=== PATIENT | female | born 1985 | race Caucasian/White ===

== ENCOUNTER → 2017-08-07 | Outpatient (CLI) | payer OTHER ==
--- NOTE | 2017-08-07 22:43 | MR ---
EXAMINATION TYPE: MR lumbar spine wo/w con DATE OF EXAM: 08/07/2017 COMPARISON: Lumbar spine x-ray November 19, 2013 HISTORY: Low Back Pain per order, Previous Surgery 2013 with recurrent back pain for 3 to 4 months pe r patient. TECHNIQUE: Multiplanar, multisequence images of the lumbar spine is performed without and with IV contrast, util izing 9 mL intravenous Gadavist FINDINGS: Sagittal images of the lumbar spine show vertebral body heights and alignment to remain sat isfactory. There is disc desiccation L4-L5 level otherwise the intervertebral discs demonstrate aixa l heights and hydration. Posterior disc herniations are seen L4-L5 and L5-S1 levels on sagittal imag es. The conus medullaris is normal in position and signal ending at mid L1 level. There is heterogene ous diminished T1 and increased T2 signal consistent with Modic type I degenerative change at L5-S1 e ndplate. Some nonspecific endplate enhancement is seen with minimal disc enhancement posteriorly and centrally sagittal image 9 noted. A discitis/osteomyelitis though unlikely is not entirely excluded. No suspicious soft tissue phlegmon or cortical destruction is present. Finding is most likely postsur gical in nature. No significant spurring is noted. There is partial visualization of unremarkable vernon rine fundus on sagittal image 2. Axial images show no the T12-L1, L1-L2, L2-L3, and L3-L4 levels all to appear within normal limits. Axial images at L4-L5 level shows mild to moderate broad disc bulge with central disc protrusion mild ly effacing anterior thecal sac. Bilateral neural foramina remain patent. Axial images at L5-S1 level shows right-sided laminectomy defect with some enhancing scar tissue exte nding to right epidural and anterior epidural space. There is small central disc protrusion but spina l canal is preserved. Bilateral neural foramina remain patent. IMPRESSION: Right laminectomy defect L5-S1 level with scar tissue noted. Some degenerative changes re main present L4-L5 and L5-S1 level as detailed above.
== END | disposition home or self-care (01) ==
LOC: RADMRIMAIN 18:06
PROVIDERS: ATTEND Internal Medicine
DX: M48.07 Spinal stenosis, lumbosacral region (principal); M51.27 Other intervertebral disc displacement, lumbosacral region; M47.817 Spondylosis without myelopathy or radiculopathy, lumbosacral region; Z98.890 Other specified postprocedural states
CPT/HCPCS: 72158; A9581

== ENCOUNTER 2017-11-22 11:30 | Emergency (ER) | payer OTHER ==
[2017-11-22 11:43] VITALS: RESP 18
[2017-11-22] MEDS ORDERED: RX INFO: IV CONTRAST WAS GIVEN 1 EACH MISC MISCELLANE PRN (11:53)
--- NOTE | 2017-11-22 11:57 | ED ---
General Adult HPI - General Chief complaint: ENT Stated complaint: facial swelling Time Seen by Provider: 11/22/17 11:55 Source: patient, RN notes reviewed Mode of arrival: ambulatory Limitations: no limitations - History of Present Illness Initial comments: This is a 32-year-old female who presents to the emergency department complaining that she has swelling in the left side of her face. Patient states last night she felt a little tightness under her left eye and this morning she woke up with swelling to the lower eyelid all the way down to her jawline. Patient denies any dental pain or. Patient denies any drainage from the eye. Patient denies any visual disturbance or double vision. Patient denies any headache. Patient denies any fever chills. Patient states prior to the tightness last night she had no symptoms whatsoever she did not believe she was congested. - Related Data Home Medications Medication Instructions Recorded Confirmed Naproxen [Naprosyn] 500 mg PO DAILY PRN 04/08/15 11/22/17 Gabapentin [Neurontin] 300 mg PO BID 11/22/17 11/22/17 HYDROcodone/APAP 7.5-325MG [[place] 1 tab PO TID PRN 11/22/17 11/22/17 7.5] Ranitidine HCl 150 mg PO HS 11/22/17 11/22/17 Vitamin B Complex 1 cap PO DAILY 11/22/17 11/22/17 Previous Rx's Medication Instructions Recorded Amoxicillin 500 mg PO Q8H #30 capsule 11/22/17 Allergies Allergy/AdvReac Type Severity Reaction Status Date / Time No Known Allergies Allergy Verified 11/22/17 12:27 Review of Systems ROS Statement: Those systems with pertinent positive or pertinent negative responses have been documented in the HPI. ROS Other: All systems not noted in ROS Statement are negative. Past Medical History Past Medical History: GERD/Reflux, Musculoskeletal Disorder, Osteoarthritis (OA) Additional Past Medical History / Comment(s): hx migraines History of Any Multi-Drug Resistant Organisms: None Reported Past Surgical History: Back Surgery, Section Past Anesthesia/Blood Transfusion Reactions: No Reported Reaction Past Psychological History: Depression Smoking Status: Current every day smoker Past Alcohol Use History: Rare Past Drug Use History: Marijuana General Exam - General Exam Comments Initial Comments: GENERAL: Patient is well-developed and well-nourished. Patient is nontoxic and well- hydrated and is in mild distress. ENT: Neck is soft and supple. No significant lymphadenopathy is noted. Left side of the patient's face is swollen from the lower eyelid down to the jawline. Patient has no erythema in that area and it is not warm. Patient is tender over the maxillary sinus. Oropharynx is clear. Moist mucous membranes. Neck has full range of motion without eliciting any pain. EYES: The sclera were anicteric and conjunctiva were pink and moist. Extraocular movements were intact and pupils were equal round and reactive to light. Eyelids were unremarkable. PULMONARY: Unlabored respirations. Good breath sounds bilaterally. No audible rales rhonchi or wheezing was noted. CARDIOVASCULAR: There is a regular rate and rhythm without any murmurs gallops or rubs. ABDOMEN: Soft and nontender with normal bowel sounds. SKIN: Skin is clear with no lesions or rashes and otherwise unremarkable. NEUROLOGIC: Patient is alert and oriented x3. Cranial nerves II through XII are grossly intact. Motor and sensory are also intact. Normal speech, volume and content. Symmetrical smile. MUSCULOSKELETAL: Normal extremities with adequate strength and full range of motion. No lower extremity swelling or edema. No calf tenderness. LYMPHATICS: No significant lymphadenopathy is noted PSYCHIATRIC: Normal psychiatric evaluation. Limitations: no limitations Course Vital Signs 11/22/17 11:41 Temperature 97.4 F L Pulse Rate 92 Respiratory 18 Rate Blood Pressure 140/93 O2 Sat by Pulse 99 Oximetry Medical Decision Making - Medical Decision Making CT shows facial cellulitis with a likely dental origin - Lab Data Result diagrams: 11/22/17 12:00 11/22/17 12:00 Lab Results 11/22/17 11/22/17 Range/Units 12:00 12:00 WBC 9.3 (3.8-10.6) k/uL RBC 5.00 (3.80-5.40) m/uL Hgb 14.7 (11.4-16.0) gm/dL Hct 45.3 (34.0-46.0) % MCV 90.6 (80.0-100.0) fL MCH 29.4 (25.0-35.0) pg MCHC 32.5 (31.0-37.0) g/dL RDW 13.5 (11.5-15.5) % Plt Count 223 (150-450) k/uL Neutrophils % 74 % Lymphocytes % 19 % Monocytes % 6 % Eosinophils % 2 % Basophils % 0 % Neutrophils # 6.8 (1.3-7.7) k/uL Lymphocytes # 1.7 (1.0-4.8) k/uL Monocytes # 0.5 (0-1.0) k/uL Eosinophils # 0.1 (0-0.7) k/uL Basophils # 0.0 (0-0.2) k/uL Sodium 143 (137-145) mmol/L Potassium 4.6 (3.5-5.1) mmol/L Chloride 105 (98-107) mmol/L Carbon Dioxide 26 (22-30) mmol/L Anion Gap 12 mmol/L BUN 7 (7-17) mg/dL Creatinine 0.56 (0.52-1.04) mg/dL Est GFR (CKD-EPI)AfAm >90 (>60 ml/min/1.73 sqM) Est GFR (CKD-EPI)NonAf >90 (>60 ml/min/1.73 sqM) Glucose 78 (74-99) mg/dL Calcium 9.4 (8.4-10.2) mg/dL Total Bilirubin 0.6 (0.2-1.3) mg/dL AST 18 (14-36) U/L ALT 22 (9-52) U/L Alkaline Phosphatase 54 (38-126) U/L Total Protein 6.9 (6.3-8.2) g/dL Albumin 4.2 (3.5-5.0) g/dL Disposition Clinical Impression: Facial cellulitis, Dental infection Disposition: HOME SELF-CARE Condition: Good Instructions: Toothache (ED) Additional Instructions: Follow-up with the dentist Prescriptions: Amoxicillin 500 mg PO Q8H #30 capsule Is patient prescribed a controlled substance at d/c from ED?: No Referrals: Kevin Huffman MD [Primary Care Provider] - 1-2 days Time of Disposition: 12:58
[2017-11-22 12:35] LABS: Basophils % (A) 0 %; Eosinophils # (A) 0.1 k/uL (0-0.7); Eosinophils % (A) 2 %; HCT 45.3 % (34.0-46.0); HGB 14.7 gm/dL (11.4-16.0); Lymphocytes # (A) 1.7 k/uL (1.0-4.8); Lymphocytes % (A) 19 %; MCH 29.4 pg (25.0-35.0); MCHC 32.5 g/dL (31.0-37.0); MCV 90.6 fL (80.0-100.0); Mean Platelet Volume 7.5; Monocytes # (A) 0.5 k/uL (0-1.0); Monocytes % (A) 6 %; Neutrophils # (A) 6.8 k/uL (1.3-7.7); Neutrophils % (A) 74 %; Platelet Count 223 k/uL (150-450); RDW 13.5 % (11.5-15.5); WBC 9.3 k/uL (3.8-10.6)
[2017-11-22 12:42] LABS: ALT 22 U/L (9-52); AST 18 U/L (14-36); Albumin 4.2 g/dL (3.5-5.0); Alkaline Phosphatase 54 U/L (38-126); Anion Gap 12 mmol/L; Blood Urea Nitrogen 7 mg/dL (7-17); Calcium 9.4 mg/dL (8.4-10.2); Carbon Dioxide 26 mmol/L (22-30); Chloride 105 mmol/L (98-107); Glucose 78 mg/dL (74-99); Potassium 4.6 mmol/L (3.5-5.1); Sodium 143 mmol/L (137-145); Total Bilirubin 0.6 mg/dL (0.2-1.3); Total Protein 6.9 g/dL (6.3-8.2)
--- NOTE | 2017-11-22 12:52 | CT ---
EXAMINATION TYPE: CT facial bones w con DATE OF EXAM: 11/22/2017 COMPARISON: NONE HISTORY: Lt eye swelling since this morning, swollen shut CT DLP: 603 mGycm Automated exposure control for dose reduction was used. CONTRAST: CT scan of the facial bones is performed with IV Contrast, patient injected with 100 mL of Isovue 300 . TECHNIQUE: CT scan of the sinuses is performed without contrast, axial images are obtained, coronal r eformatted images are also reviewed. FINDINGS: There is edema of the lower left eyelid extending into the left infraorbital and left facial region. There is also inflammatory change adjacent to the left maxilla where there is an upper left molar dem onstrating cortical disruption seen best on axial image 5 of 87 bone window setting. No definable abs cess is appreciated at this time however etiology may reflect dental source of infection. Globes are symmetric. No evidence for retro-orbital cellulitis. Optic nerves and globes are intact. There is mild mucosal thickening of the left maxillary sinus. No air-fluid levels are seen. Remaining paranasal sinuses are well-aerated. Visualized portion of mastoid air cells show no abnormal opacification. IMPRESSION: 1. Left facial cellulitis extending to the level of the lower left eyelid. As noted there is an upper left-sided molar with cortical disruption and moderate adjacent inflammatory change. Dental source o f infection is likely. No evidence for visible abscess at this time.
[2017-11-22] MEDS ORDERED: AMOXICILLIN 875 MG TAB PO STA (12:57)
[2017-11-22] MEDS ORDERED: AMOXICILLIN 500MG STARTER PACK 3 CAP BTL PO STA (12:57)
[2017-11-22 13:26] VITALS: BP 127/87; PULSE 80; TEMP 98.1
== END 2017-11-22 13:24 | disposition home or self-care (01) ==
LOC: EC 11:30
DX: L03.211 Cellulitis of face (principal); K04.7 Periapical abscess without sinus; K21.9 Gastro-esophageal reflux disease without esophagitis; F17.200 Nicotine dependence, unspecified, uncomplicated; Z79.899 Other long term (current) drug therapy
CPT/HCPCS: 36415; 80053; 85025; 87040; 70487; 99284; Q9967

== ENCOUNTER → 2018-07-03 | Outpatient (CLI) | payer OTHER ==
--- NOTE | 2018-07-04 09:15 | XR ---
EXAMINATION TYPE: XR chest 2V DATE OF EXAM: 07/03/2018 CLINICAL HISTORY: Cough TECHNIQUE: Frontal and lateral views of the chest are obtained. COMPARISON: None FINDINGS: There is no focal air space opacity, pleural effusion, or pneumothorax seen. The cardiac silhouette size is within normal limits. The osseous structures are intact. IMPRESSION: No acute cardiopulmonary process.
== END | disposition home or self-care (01) ==
LOC: RADXRMAIN 16:33
PROVIDERS: ATTEND Internal Medicine
DX: R05 Cough (principal)
CPT/HCPCS: 71046

== ENCOUNTER 2018-10-26 20:52 | Emergency (ER) | payer OTHER ==
[~2018-10-26 20:52] MED LIST: MORPHINE SULFATE 2 MG/ML SYRINGE IM STA
[2018-10-26 21:17] VITALS: BP 139/74; PULSE 98; RESP 16; TEMP 98
[2018-10-26] MEDS ORDERED: TOPICAL SKIN ADHESIVE 1 EACH AMP TOPICAL ONE (21:53)
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
--- NOTE | 2018-10-26 22:21 | XR ---
EXAMINATION TYPE: XR hand complete LT DATE OF EXAM: 10/26/2018 COMPARISON: NONE HISTORY: Thumb laceration TECHNIQUE: 3 views FINDINGS: I see no fracture nor dislocation. Joint spaces are normal. There are no pathologic calcifi cations. IMPRESSION: Negative left thumb exam.
== END 2018-10-26 22:29 | disposition home or self-care (01) ==
LOC: EC 20:52
DX: S61.012A Laceration without foreign body of left thumb without damage to nail, initial encounter (principal); K21.9 Gastro-esophageal reflux disease without esophagitis; F17.200 Nicotine dependence, unspecified, uncomplicated; Z79.899 Other long term (current) drug therapy; Z86.69 Personal history of other diseases of the nervous system and sense organs; W22.8XXA Striking against or struck by other objects, initial encounter; Y93.89 Activity, other specified
CPT/HCPCS: 12001; 99283

== ENCOUNTER 2018-11-02 06:30 | Emergency (ER) | payer OTHER ==
[2018-11-02] MEDS ORDERED: KETOROLAC 30 MG/ML 1 ML VIAL IM STA (06:39)
--- NOTE | 2018-11-02 06:51 | ED ---
General Adult HPI - General Source: patient, EMS Mode of arrival: EMS Limitations: no limitations <Brynn Epps - Last Filed: 11/02/18 07:09> <Rolando Hung - Last Filed: 11/02/18 08:49> - General Chief complaint: Extremity Injury, Lower Stated complaint: Hip Pain Time Seen by Provider: 11/02/18 06:39 - History of Present Illness Initial comments: Tanvi is a 33-year-old female with a history of chronic low back pain who presents to the emergency department today for evaluation of left hip pain. Patient reports her left hip has been bothering her for approximately 2 days, she reports feeling like there is bones grinding on each other in her hip. Patient denies any injury or fall. Patient reports that the pain is progressively worsened over 2 days duration and now is unbearable. She reports that this morning she got out of bed and had some which pain in her hip she had to lower herself to the ground where she laid for nearly an hour before contacting EMS because she can get up to take herself to the hospital. Patient reports she's been taking her Lyrica and [place] which she has for her back with minimal improvement in the discomfort in her hip. (Brynn Epps) - Related Data Home Medications Medication Instructions Recorded Confirmed Naproxen [Naprosyn] 500 mg PO BID PRN 04/08/15 11/02/18 Gabapentin [Neurontin] 300 mg PO BID 11/22/17 11/02/18 HYDROcodone/APAP 7.5-325MG [[place] 1 tab PO TID PRN 11/22/17 11/02/18 7.5] Ranitidine HCl 150 mg PO HS 11/22/17 11/02/18 Previous Rx's Medication Instructions Recorded Ketorolac [Toradol] 10 mg PO Q6HR #15 tab 11/02/18 Allergies Allergy/AdvReac Type Severity Reaction Status Date / Time No Known Allergies Allergy Verified 10/26/18 21:16 Review of Systems ROS Other: All systems not noted in ROS Statement are negative. <Brynn Epps - Last Filed: 11/02/18 07:09> ROS Other: All systems not noted in ROS Statement are negative. <Rolando Hung - Last Filed: 11/02/18 08:49> ROS Statement: Those systems with pertinent positive or pertinent negative responses have been documented in the HPI. Past Medical History Past Medical History: GERD/Reflux, Musculoskeletal Disorder, Osteoarthritis (OA) Additional Past Medical History / Comment(s): hx migraines History of Any Multi-Drug Resistant Organisms: None Reported Past Surgical History: Back Surgery, Section Additional Past Surgical History / Comment(s): right eye surg. Past Anesthesia/Blood Transfusion Reactions: No Reported Reaction Past Psychological History: Depression Smoking Status: Current every day smoker Past Alcohol Use History: Rare Past Drug Use History: Marijuana <Brynn Epps - Last Filed: 11/02/18 07:09> General Exam Limitations: no limitations <Brynn Epps - Last Filed: 11/02/18 07:09> - General Exam Comments Initial Comments: Physical Exam GENERAL: Appears uncomfortable, crying out in pain HENT: Normocephalic, Atraumatic. EYES: PERRL, EOMI PULMONARY: Unlabored respirations. No audible rales rhonchi or wheezing was noted. CARDIOVASCULAR: There is a regular rate and rhythm without any murmurs gallops or rubs. ABDOMEN: Soft and nontender with normal bowel sounds. SKIN: Skin is clear with no lesions or rashes and otherwise unremarkable. No overlying erythema or injury to the head no bruising : Deferred NEUROLOGIC: Patient is alert and oriented x3. Moving all extremities spontaneously MUSCULOSKELETAL: Normal extremities with adequate strength and full range of motion. No lower extremity swelling or edema. No calf tenderness. Patient has full range of motion of the hip is able to flex and straighten the hip with no apparent change in pain, no worsening of pain with palpation PSYCHIATRIC: Normal psychiatric evaluation. Limitations: no limitations (Brynn Epps) Course Vital Signs 11/02/18 06:32 Temperature 97.8 F Pulse Rate 73 Respiratory 17 Rate Blood Pressure 126/80 O2 Sat by Pulse 100 Oximetry Medical Decision Making <Brynn Epps - Last Filed: 11/02/18 07:09> - Lab Data Result diagrams: 11/02/18 07:10 11/02/18 07:10 <Rolando Hung - Last Filed: 11/02/18 08:49> - Medical Decision Making The patient was seen and evaluated history was obtained from EMS and the patient excited patient with a history of chronic back pain and known arthritis presenting with worsening pain in her left hip reports feeling like there is bones rubbing on bones she denies any traumas or injuries X-rays were ordered, patient states that her has been sterilized she has no concern that she could be she would like to proceed with an x-ray without a urine test Labs including CBC CMP and CRP were ordered Patient care was signed out to Dr. Hung at shift change. (Brynn Epps) X-ray of the hip shows no acute abnormality lab work is all normal. I walked in the room the patient was sleeping when I woke her up she was able to move the hip with full range of motion though she said it hurt she had no problem bending at all it up to her chest and externally rotating it fully. (Rolando Hung) - Lab Data Lab Results 11/02/18 11/02/18 Range/Units 07:10 07:10 WBC 8.4 (3.8-10.6) k/uL RBC 4.85 (3.80-5.40) m/uL Hgb 14.3 (11.4-16.0) gm/dL Hct 44.0 (34.0-46.0) % MCV 90.7 (80.0-100.0) fL MCH 29.4 (25.0-35.0) pg MCHC 32.4 (31.0-37.0) g/dL RDW 13.6 (11.5-15.5) % Plt Count 244 (150-450) k/uL Neutrophils % 72 % Lymphocytes % 20 % Monocytes % 5 % Eosinophils % 2 % Basophils % 0 % Neutrophils # 6.0 (1.3-7.7) k/uL Lymphocytes # 1.7 (1.0-4.8) k/uL Monocytes # 0.4 (0-1.0) k/uL Eosinophils # 0.2 (0-0.7) k/uL Basophils # 0.0 (0-0.2) k/uL Sodium 140 (137-145) mmol/L Potassium 3.8 (3.5-5.1) mmol/L Chloride 107 (98-107) mmol/L Carbon Dioxide 25 (22-30) mmol/L Anion Gap 8 mmol/L BUN 8 (7-17) mg/dL Creatinine 0.60 (0.52-1.04) mg/dL Est GFR (CKD-EPI)AfAm >90 (>60 ml/min/1.73 sqM) Est GFR (CKD-EPI)NonAf >90 (>60 ml/min/1.73 sqM) Glucose 97 (74-99) mg/dL Calcium 9.5 (8.4-10.2) mg/dL Total Bilirubin 0.9 (0.2-1.3) mg/dL AST 21 (14-36) U/L ALT 31 (9-52) U/L Alkaline Phosphatase 50 (38-126) U/L C-Reactive Protein 7.3 (<10.0) mg/L Total Protein 7.0 (6.3-8.2) g/dL Albumin 4.2 (3.5-5.0) g/dL Disposition Is patient prescribed a controlled substance at d/c from ED?: No <Brynn Epps - Last Filed: 11/02/18 07:09> Is patient prescribed a controlled substance at d/c from ED?: No Time of Disposition: 08:48 <Rolando Hung - Last Filed: 11/02/18 08:49> Clinical Impression: Left hip pain Disposition: HOME SELF-CARE Instructions (If sedation given, give patient instructions): Osteoarthritis (ED) Prescriptions: Ketorolac [Toradol] 10 mg PO Q6HR #15 tab Referrals: Kevin Huffman MD [Primary Care Provider] - 1-2 days
--- NOTE | 2018-11-02 07:01 | XR ---
EXAMINATION TYPE: XR Hip Limited LT , 2 VIEWS DATE OF EXAM ORDERED: 11/02/2018 HISTORY: Pain. COMPARISON: None. FINDINGS: There is degenerative change in the left hip. There are also degenerative changes in the l eft SI joint. No fracture, dislocation or other acute osseous lesion is seen. IMPRESSION: 1. NO ACUTE OSSEOUS LESION. 2. DEGENERATIVE CHANGE.
[2018-11-02 07:47] LABS: Basophils % (A) 0 %; Eosinophils # (A) 0.2 k/uL (0-0.7); Eosinophils % (A) 2 %; HGB 14.3 gm/dL (11.4-16.0); Lymphocytes # (A) 1.7 k/uL (1.0-4.8); Lymphocytes % (A) 20 %; MCH 29.4 pg (25.0-35.0); MCHC 32.4 g/dL (31.0-37.0); MCV 90.7 fL (80.0-100.0); Mean Platelet Volume 7.6; Monocytes # (A) 0.4 k/uL (0-1.0); Monocytes % (A) 5 %; Neutrophils % (A) 72 %; Platelet Count 244 k/uL (150-450); RBC 4.85 m/uL (3.80-5.40); RDW 13.6 % (11.5-15.5); WBC 8.4 k/uL (3.8-10.6)
[2018-11-02 07:56] LABS: ALT 31 U/L (9-52); AST 21 U/L (14-36); Albumin 4.2 g/dL (3.5-5.0); Alkaline Phosphatase 50 U/L (38-126); Anion Gap 8 mmol/L; Blood Urea Nitrogen 8 mg/dL (7-17); Calcium 9.5 mg/dL (8.4-10.2); Carbon Dioxide 25 mmol/L (22-30); Chloride 107 mmol/L (98-107); Glucose 97 mg/dL (74-99); Potassium 3.8 mmol/L (3.5-5.1); Sodium 140 mmol/L (137-145); Total Bilirubin 0.9 mg/dL (0.2-1.3)
[2018-11-02 08:22] LABS: C Reactive Protein 7.3 mg/L (<10.0)
[2018-11-02] MEDS ORDERED: HYDROmorphone 1 MG/ML 1 ML SYRINGE IM STA (08:47)
[2018-11-02 09:11] VITALS: BP 112/79; PULSE 81; RESP 18; TEMP 97.5
== END 2018-11-02 09:30 | disposition home or self-care (01) ==
LOC: EC 06:30
DX: M25.552 Pain in left hip (principal); M19.90 Unspecified osteoarthritis, unspecified site; K21.9 Gastro-esophageal reflux disease without esophagitis; G89.29 Other chronic pain; F17.200 Nicotine dependence, unspecified, uncomplicated; Z79.899 Other long term (current) drug therapy
CPT/HCPCS: 36415; 80053; 85025; 86140; 73501; 99284; 96372 ×2; J1885; J1170

== ENCOUNTER 2019-01-23 13:14 | Emergency (ER) | payer OTHER ==
[2019-01-23] MEDS ORDERED: KETOROLAC 60 MG/2 ML VIAL IM STA (13:53)
[2019-01-23] MEDS ORDERED: MORPHINE SULFATE 4 MG/ML SYRINGE IM STA (13:53)
[2019-01-23] MEDS ORDERED: DIAZEPAM 5 MG/ML 2 ML INJ IM ONE (13:53)
--- NOTE | 2019-01-23 14:55 | ED ---
Back Pain HPI - General Chief Complaint: Back Pain/Injury Stated Complaint: hip & leg pain Time Seen by Provider: 01/23/19 13:30 Source: patient, RN notes reviewed, old records reviewed Limitations: no limitations - History of Present Illness Initial Comments: Patient is a 33-year-old female who presents emergency department today for evaluation for left hip pain radiates down her left leg. She's been having the symptoms for the past few weeks. She denies any recent fall or trauma. Symptoms started after she was doing a split at work. Patient states that she's had no saddle anesthesia. She denies any abdominal pain. He is worse. She states she's been using her at home pain medication including Olin gabapentin and naproxen without significant relief. - Related Data Home Medications Medication Instructions Recorded Confirmed Naproxen [Naprosyn] 500 mg PO BID PRN 04/08/15 11/02/18 Gabapentin [Neurontin] 300 mg PO BID 11/22/17 11/02/18 HYDROcodone/APAP 7.5-325MG [Olin 1 tab PO TID PRN 11/22/17 11/02/18 7.5] Ranitidine HCl 150 mg PO HS 11/22/17 11/02/18 Previous Rx's Medication Instructions Recorded Ketorolac [Toradol] 10 mg PO Q6HR #15 tab 11/02/18 Dexamethasone 0.75 mg PO DAILY #12 tab 01/23/19 Diazepam [Valium] 5 mg PO Q8H PRN 1 Days #3 tab 01/23/19 Allergies Allergy/AdvReac Type Severity Reaction Status Date / Time No Known Allergies Allergy Verified 01/23/19 13:25 Review of Systems ROS Statement: Those systems with pertinent positive or pertinent negative responses have been documented in the HPI. ROS Other: All systems not noted in ROS Statement are negative. Past Medical History Past Medical History: GERD/Reflux, Musculoskeletal Disorder, Osteoarthritis (OA) Additional Past Medical History / Comment(s): hx migraines History of Any Multi-Drug Resistant Organisms: None Reported Past Surgical History: Back Surgery, Section Additional Past Surgical History / Comment(s): right eye surg. Past Anesthesia/Blood Transfusion Reactions: No Reported Reaction Past Psychological History: Depression Smoking Status: Current every day smoker Past Alcohol Use History: Rare Past Drug Use History: Marijuana General Exam - General Exam Comments Initial Comments: Patient is a 33-year-old female. Patient appears quite anxious, writhing around in bed. Limitations: no limitations General appearance: alert, in no apparent distress Head exam: Present: atraumatic, normocephalic, normal inspection Eye exam: Present: normal appearance, PERRL, EOMI. Absent: scleral icterus, conjunctival injection, periorbital swelling ENT exam: Present: normal exam, mucous membranes moist Neck exam: Present: normal inspection. Absent: tenderness, meningismus, lymphadenopathy Respiratory exam: Present: normal lung sounds bilaterally. Absent: respiratory distress, wheezes, rales, rhonchi, stridor Cardiovascular Exam: Present: regular rate, normal rhythm, normal heart sounds. Absent: systolic murmur, diastolic murmur, rubs, gallop, clicks GI/Abdominal exam: Present: soft, normal bowel sounds. Absent: distended, tenderness, guarding, rebound, rigid Extremities exam: Present: normal inspection, full ROM, normal capillary refill. Absent: tenderness, pedal edema, joint swelling, calf tenderness Back exam: Present: normal inspection, other (Vision is tenderness over the left sciatic notch.) Neurological exam: Present: alert, oriented X3, CN II-XII intact Psychiatric exam: Present: normal affect, normal mood Skin exam: Present: warm Course Vital Signs 01/23/19 01/23/19 13:22 16:14 Temperature 97.9 F 99.1 F Pulse Rate 100 56 L Respiratory 22 18 Rate Blood Pressure 118/65 131/84 O2 Sat by Pulse 99 98 Oximetry Medical Decision Making - Medical Decision Making Patient is a 33 year old female with 3 weeks of intermittent left leg and back pain after fall, she sees Dr. Diehl for this radiculopathy syndrome as well as PCP. She denies saddle anesthesia. Patient appeared in significant discomfort on initial evaluation. Given IM pain medications. Patient has no other symptoms. PAtient UA is normal. Patient is scheduled for MRI for knee and back today at 4 oclock. After Im injection patient pain is managed, and able to complete MRI. Discussed starting steroids, continuing medication at home as previously perscribed. Given Short course of valium PO for muscle spasm as flexeril hasnt been working. - Lab Data Lab Results 01/23/19 Range/Units 15:20 Urine Color Yellow Urine Appearance Clear (Clear) Urine pH 6.0 (5.0-8.0) Ur Specific [place] 1.013 (1.001-1.035) Urine Protein Negative (Negative) Urine Glucose (UA) Negative (Negative) Urine Ketones Trace H (Negative) Urine Blood Negative (Negative) Urine Nitrite Negative (Negative) Urine Bilirubin Negative (Negative) Urine Urobilinogen <2.0 (<2.0) mg/dL Ur Leukocyte Esterase Negative (Negative) Urine Opiates Screen Detected H (NotDetected) Ur Oxycodone Screen Not Detected (NotDetected) Urine Methadone Screen Not Detected (NotDetected) Ur Propoxyphene Screen Not Detected (NotDetected) Ur Barbiturates Screen Not Detected (NotDetected) U Tricyclic Antidepress Not Detected (NotDetected) Ur Phencyclidine Scrn Not Detected (NotDetected) Ur Amphetamines Screen Not Detected (NotDetected) U Methamphetamines Scrn Not Detected (NotDetected) U Benzodiazepines Scrn Not Detected (NotDetected) Urine Cocaine Screen Not Detected (NotDetected) U Marijuana (THC) Screen Detected H (NotDetected) Disposition Clinical Impression: Lumbar radiculopathy, chronic, Sciatica Disposition: HOME SELF-CARE Condition: Good Instructions (If sedation given, give patient instructions): Acute Low Back Pain (ED) Additional Instructions: Patient is to follow-up with primary care doctor and pain management specialty. Go directly to MRI. Return to the emergency department if any alarming signs or symptoms occur. Prescriptions: Dexamethasone 0.75 mg PO DAILY #12 tab Diazepam [Valium] 5 mg PO Q8H PRN 1 Days #3 tab PRN Reason: Spasms Is patient prescribed a controlled substance at d/c from ED?: No Referrals: Kevin Huffman MD [Primary Care Provider] - 1-2 days
[2019-01-23 15:37] LABS: Appearance,Urine Clear (Clear); Bilirubin,Urine Negative (Negative); Blood,Urine Negative (Negative); Color,Urine Yellow; Glucose,Urine (UA) Negative (Negative); Ketones,Urine Trace (Negative); Leukocyte Esterase,Urine Negative (Negative); Nitrite,Urine Negative (Negative); Protein,Urine Negative (Negative); Specific Gravity,Urine 1.013 (1.001-1.035); Urobilinogen,Urine <2.0 mg/dL (<2.0)
[2019-01-23] MEDS ORDERED: HYDROmorphone 1 MG/ML 1 ML SYRINGE IM STA (15:55)
[2019-01-23 15:57] LABS: Amphetamine Screen,Urine Not Detected (NotDetected); Barbiturate Screen,Urine Not Detected (NotDetected); Benzodiazepines Screen,Urine Not Detected (NotDetected); Cocaine Screen,Urine Not Detected (NotDetected); Methadone Screen, Urine Not Detected (NotDetected); Opiate Screen,Urine Detected (NotDetected); Oxycodone Screen, Urine Not Detected (NotDetected); Phencyclidine Screen,Urine Not Detected (NotDetected); Tricyclic Antidepressant,Urine Not Detected (NotDetected); Urn Cannabinoid Scrn Detected (NotDetected)
[2019-01-23 16:15] VITALS: BP 131/84; PULSE 56; RESP 18; TEMP 99.1
== END 2019-01-23 16:14 | disposition home or self-care (01) ==
LOC: EC 13:14
DX: M54.16 Radiculopathy, lumbar region (principal); M54.32 Sciatica, left side; M19.90 Unspecified osteoarthritis, unspecified site; K21.9 Gastro-esophageal reflux disease without esophagitis; F17.200 Nicotine dependence, unspecified, uncomplicated; Z79.899 Other long term (current) drug therapy
CPT/HCPCS: 81003; 80306; 99284; 96372 ×4; J2270; J3360; J1885; J1170

== ENCOUNTER → 2019-01-23 | Outpatient (CLI) | payer OTHER ==
--- NOTE | 2019-01-23 22:36 | MR ---
EXAMINATION TYPE: MR knee LT wo con DATE OF EXAM: 01/23/2019 COMPARISON: NONE HISTORY: Left Knee Pain. Twisting injury. TECHNIQUE: Multiplanar, multisequence images of the knee is performed without IV contrast. FINDINGS: MEDIAL MENISCUS: Anterior horn is intact without tear. Posterior horn has oblique increased signal ex tending to inferior articular surface. LATERAL MENISCUS: Posterior horn is intact without tear. Anterior horn is truncated with some increas ed signal anteriorly and adjacent para meniscal cyst formation sagittal image 8 CRUCIATE LIGAMENTS: The anterior and posterior cruciate ligaments are intact and unremarkable. COLLATERAL LIGAMENTS: The medial collateral ligament and lateral collateral ligament complex are inta ct and unremarkable. EXTENSOR MECHANISM: Visualized quadriceps and patellar tendons are intact. EFFUSION: No significant suprapatellar joint effusion. POPLITEAL CYST: No popliteal/navarro cyst. TRICOMPARTMENT SPACES: Tricompartment joint spaces are preserved. No significant spurring. CARTILAGE: No significant chondromalacia patella. Tricompartment articular cartilage is maintained. BONE MARROW SIGNAL: Heterogeneity consistent with red marrow reconversion. OTHER: No additional significant abnormality is appreciated. IMPRESSION: 1. Oblique full-thickness tear posterior horn medial meniscus. 2. Additional full-thickness tear anterior horn of lateral meniscus with adjacent para meniscal cyst formation noted. 3. No collateral ligament tear or significant degenerative change. No joint effusion suggesting more remote injury.
== END | disposition home or self-care (01) ==
LOC: RADMRIMAIN 16:25
PROVIDERS: ATTEND Internal Medicine
DX: S83.242A Other tear of medial meniscus, current injury, left knee, initial encounter (principal); S83.282A Other tear of lateral meniscus, current injury, left knee, initial encounter

== ENCOUNTER 2019-10-19 15:14 | Emergency (ER) | payer OTHER ==
[2019-10-19 15:34] LABS: Basophils % (A) 0 %; Eosinophils # (A) 0.2 k/uL (0-0.7); Eosinophils % (A) 3 %; HCT 45.6 % (34.0-46.0); HGB 14.8 gm/dL (11.4-16.0); Lymphocytes # (A) 3.3 k/uL (1.0-4.8); Lymphocytes % (A) 42 %; MCH 29.8 pg (25.0-35.0); MCHC 32.5 g/dL (31.0-37.0); MCV 91.7 fL (80.0-100.0); Mean Platelet Volume 8.2; Monocytes # (A) 0.4 k/uL (0-1.0); Monocytes % (A) 5 %; Neutrophils # (A) 3.7 k/uL (1.3-7.7); Neutrophils % (A) 48 %; Platelet Count 275 k/uL (150-450); RBC 4.98 m/uL (3.80-5.40); RDW 13.6 % (11.5-15.5); WBC 7.7 k/uL (3.8-10.6)
[2019-10-19 15:36] VITALS: BP 139/105; PULSE 85; RESP 18; TEMP 97.8
[2019-10-19 15:41] LABS: INR 0.9 (<1.2); Prothrombin Time 9.9 sec (9.0-12.0)
[2019-10-19 15:44] LABS: ALT 15 U/L (4-34); AST 26 U/L (14-36); African American GFR (CKD) >90 (>60 ml/min/1.73 sqM); Albumin 4.5 g/dL (3.5-5.0); Alcohol <10 mg/dL; Alkaline Phosphatase 52 U/L (38-126); Amylase 53 U/L (30-110); Anion Gap 6 mmol/L; Blood Urea Nitrogen 15 mg/dL (7-17); Calcium 9.9 mg/dL (8.4-10.2); Carbon Dioxide 30 mmol/L (22-30); Chloride 103 mmol/L (98-107); Glucose 82 mg/dL (74-99); Non-African American GFR(CKD) >90 (>60 ml/min/1.73 sqM); Potassium 4.7 mmol/L (3.5-5.1); Sodium 139 mmol/L (137-145); Total Bilirubin 0.5 mg/dL (0.2-1.3); Total Protein 7.8 g/dL (6.3-8.2)
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
[2019-10-19 15:54] LABS: Creatine Kinase 73 U/L (30-135)
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
--- NOTE | 2019-10-19 16:03 | XR ---
EXAMINATION TYPE: XR foot complete RT DATE OF EXAM: 10/19/2019 COMPARISON: NONE HISTORY: Pain TECHNIQUE: 3 views FINDINGS: Metatarsals are intact. There is a large plantar calcaneal spur with fracture of the spur. It is not clear if this is an acute fracture. There are no erosions. There is no subluxation. IMPRESSION: Calcaneal spurring. There is a fracture of the calcaneal spur of uncertain age. Fracture is new compared to old exam of 04/08/2015.
--- NOTE | 2019-10-19 16:05 | XR ---
EXAMINATION TYPE: XR tibia fibula RT DATE OF EXAM: 10/19/2019 COMPARISON: NONE HISTORY: Pain TECHNIQUE: 4 views FINDINGS: Tibia and fibula appear intact. I see no fracture nor dislocation. There is fracture of the large plantar calcaneal spur which appears to be an acute fracture on this exam. IMPRESSION: No evidence of tibia and fibula fracture. Acute fracture of the plantar calcaneal large s pur.
--- NOTE | 2019-10-19 16:06 | XR ---
EXAMINATION TYPE: XR ankle complete RT DATE OF EXAM: 10/19/2019 COMPARISON: NONE HISTORY: Ankle pain TECHNIQUE: FINDINGS: Ankle mortise is anatomic. There is a plantar calcaneal spur with an apparent acute nondisp laced fracture. Joint spaces are normal. IMPRESSION: Acute fracture of the large plantar calcaneal spur. No ankle fracture seen.
[2019-10-19 16:07] LABS: Creatine Kinase MB 1.1 ng/mL (0.0-2.4); Troponin I <0.012 ng/mL (0.000-0.034)
--- NOTE | 2019-10-19 16:33 | CT ---
EXAMINATION TYPE: CT brain cspine wo con DATE OF EXAM: 10/19/2019 COMPARISON: None HISTORY: MCA today Headache. Neck pain. CT DLP: 1330.6 mGycm Automated exposure control for dose reduction was used. Ventricles and sulci appear normal. There is no mass effect nor midline shift. There is no sign of in tracranial hemorrhage. The calvarium is intact. There is no evidence of cerebral edema. There is mild straightening of the cervical spine. Disc spaces are normal. Posterior elements are int act. Facet joints are intact. Skull base is intact. Temporal bones appear normal. IMPRESSION: Negative CT scan of the brain. Negative CT scan cervical spine.
--- NOTE | 2019-10-19 17:36 | XR ---
EXAMINATION TYPE: XR knee complete bilateral DATE OF EXAM: 10/19/2019 COMPARISON: NONE HISTORY: Pain TECHNIQUE: 3 views each knee. FINDINGS: I see no fracture nor dislocation. Joint spaces are normal. There is no sign of knee joint effusion. IMPRESSION: Normal bilateral knee exam. No fracture.
[2019-10-19] MEDS ORDERED: HYDROcodone/APAP 10-325MG 1 EACH TAB PO ONE (18:06)
== END 2019-10-19 18:30 | disposition home or self-care (01) ==
LOC: EC 15:14
DX: M77.31 Calcaneal spur, right foot (principal); M25.561 Pain in right knee; M25.562 Pain in left knee; M79.604 Pain in right leg; S92.001A Unspecified fracture of right calcaneus, initial encounter for closed fracture; F17.200 Nicotine dependence, unspecified, uncomplicated; Z79.899 Other long term (current) drug therapy; V23.5XXA Motorcycle passenger injured in collision with car, pick-up truck or van in traffic accident, initial encounter; Y92.410 Unspecified street and highway as the place of occurrence of the external cause
CPT/HCPCS: 36415; 70450; 71045; 72125; 72170; 80053; 80320; 82150; 82550; 82553; 83605; 83690; 84484; 85025; 85610; 85730; 86850; 86900; 86901; 93005; 99285

== ENCOUNTER → 2020-04-28 | Outpatient (CLI) | payer OTHER ==
--- NOTE | 2020-04-30 10:59 | MR ---
EXAMINATION TYPE: MR lumbar spine wo/w con DATE OF EXAM: 04/28/2020 COMPARISON: Prior lumbar MRI 08/07/2017 HISTORY: Back Pain Radiating to Left Leg TECHNIQUE: Multiplanar, multisequence images of the lumbar spine were acquired utilizing [address] gadolinium contrast. L1-L2: Normal disc appearance without desiccation. No herniation, protrusion or disc bulging. No ca nal stenosis is present. Foramina are patent bilaterally. L2-L3: Normal disc appearance without desiccation. No herniation, protrusion or disc bulging. No ca nal stenosis is present. Foramina are patent bilaterally. L3-L4: Normal disc appearance without desiccation. No herniation, protrusion or disc bulging. No ca nal stenosis is present. Foramina are patent bilaterally. L4-L5: Posterior broad-based disc bulge is again noted causing minimal anterior mass effect on the th ecal sac. No significant foraminal encroachment or spinal stenosis. Hypertrophy of the ligamentum fla vum causes posterior lateral mass effect on the thecal sac. L5-S1: Posterior broad-based disc bulge, posterior extension endplate disc complex shows a similar ap pearance, sagittal image #9 shows perhaps some mild progression in the posterior extension of endplat e disc complex as compared to prior, there is some contact or possibly mild anterior mass effect on t he proximal S1 nerve roots suspected. Circumferential extension endplate disc complex causes some for aminal encroachment. There is laminectomy change on the right and some enhancing granulation tissue i s present along the nerve roots and posterior aspect of the disc, and at the laminectomy site on the right. There is some facet arthropathy change. Lumbar segments are intact. No paraspinal masses are identified. Conus medullaris has a normal appe arance. There is no evident spinal stenosis. Lumbar vertebral bodies show preserved height and alignm ent. There is mild spondylosis with endplate discogenic marrow signal change. Again noted is loss of disc height signal greatest at L5-S1 greater than L4-5. IMPRESSION: Degenerative disc disease, postop changes as described
== END | disposition home or self-care (01) ==
LOC: RADMRIMAIN 18:40
PROVIDERS: ATTEND Internal Medicine
DX: M51.36 Other intervertebral disc degeneration, lumbar region (principal); Z98.890 Other specified postprocedural states
CPT/HCPCS: 72158; A9585

== ENCOUNTER → 2021-01-03 | Outpatient (CLI) | payer OTHER | END | disposition home or self-care (01) | CPT/HCPCS: 72148 ==

== ENCOUNTER → 2021-01-12 | Outpatient (CLI) | payer OTHER ==
[2021-01-12 08:47] VITALS: BP 104/76; PULSE 90; RESP 16; TEMP 97.5
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
== END ==
LOC: PNWHC3 08:30
PROVIDERS: ATTEND Specialist
DX: M47.816 Spondylosis without myelopathy or radiculopathy, lumbar region (principal); M51.36 Other intervertebral disc degeneration, lumbar region; M46.1 Sacroiliitis, not elsewhere classified; F17.200 Nicotine dependence, unspecified, uncomplicated; M19.90 Unspecified osteoarthritis, unspecified site; Z98.890 Other specified postprocedural states
CPT/HCPCS: 99211

== ENCOUNTER → 2021-02-10 | Outpatient (CLI) | payer OTHER ==
[2021-02-11 12:12] LABS: T4, Free (Free Thyroxine) 1.2 ng/dL (0.80-1.80)
== END | disposition home or self-care (01) ==
LOC: LABWHC1 11:04
PROVIDERS: ATTEND Psychiatry & Neurology Neurology
DX: M62.89 Other specified disorders of muscle (principal); Z79.899 Other long term (current) drug therapy
CPT/HCPCS: 36415; 82306; 82550; 82607; 84439; 84443

== ENCOUNTER → 2021-02-16 | Outpatient (CLI) | payer OTHER ==
[2021-02-16 13:40] VITALS: BP 112/73; PULSE 79; RESP 18; TEMP 98.2
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
== END ==
LOC: PNWHC3 13:15
PROVIDERS: ATTEND Anesthesiology
DX: M47.816 Spondylosis without myelopathy or radiculopathy, lumbar region (principal); M46.1 Sacroiliitis, not elsewhere classified; M51.36 Other intervertebral disc degeneration, lumbar region; Z98.1 Arthrodesis status; F17.200 Nicotine dependence, unspecified, uncomplicated
CPT/HCPCS: 99211

== ENCOUNTER 2021-06-14 10:42 | Day surgery (SDC) | payer OTHER ==
[2021-06-09 16:22] VITALS: BMI 29.7
[~2021-06-14 10:42] MED LIST changes: +LACTATED RINGERS 1,000 ML IV SCH; -MORPHINE SULFATE 2 MG/ML SYRINGE IM STA
[2021-06-14 11:05] VITALS: RESP 16; TEMP 97.8
[2021-06-14] MEDS ORDERED: TRIAMCINOLONE ACETONIDE 40 MG/ML 1 ML VIAL ONE (11:31)
[2021-06-14] MEDS ORDERED: MIDAZOLAM 2 MG/2 ML VIAL ONE (11:31)
[2021-06-14] MEDS ORDERED: ROPIVACAINE 5MG/ML 20ML VIAL ONE (11:31)
[2021-06-14] MEDS ORDERED: IV FLUID CONTINUATION 1,000 ML IV ONE (11:54)
--- NOTE | 2021-06-14 12:02 | FL ---
Fluoroscopy HISTORY: Pain 6 seconds fluoroscopy time supplied to the referring clinician. 3 intraoperative C-arm images docume nt the procedure. See dictated report from anesthesia.
[2021-06-14 12:03] VITALS: PULSE 58
[2021-06-14 12:12] VITALS: BP 103/72
--- NOTE | 2021-06-15 15:31 | P.PCN ---
Date of Procedure: 06/14/21 Surgeon: Daryl Barry Pathology: none sent Condition: stable Disposition: PACU Description of Procedure: PREOPERATIVE DIAGNOSIS : 1- Lumbar spondylosis with Facet Arthropathy without myelopathy . 2- Lumber degenerative disc disease POSTOPERATIVE DIAGNOSIS: 1- Lumbar spondylosis with Facet Arthropathy without myelopathy . 2- Lumber degenerative disc disease PROCEDURE: Diagnostic bilateral L4 -5 , and L5-S1 medial branch block under fluoroscopy Physician: Daryl Barry MD ANESTHESIA: Local with 1% lidocaine; IV moderate conscious sedation with Versed 2 mg . EBL: Negligible COMPLICATION: None. PROCEDURE INDICATION: Chronic low back pain secondary to Facet arthropathy unresponsive to conservative treatment. PROCEDURE DESCRIPTION: the patient was seen and identified in the preop holding area , risks and benefits and possible complications of the procedure and alternatives were discussed with the patient, and the patient agreed to proceed with the procedure and signed the consent. IV was started and vital signs monitored during the procedure and fluoroscopy was used to maximize the benefit and accuracy of the needle placement, sedation was given to decrease patient anxiety, patient was taken to the procedure room and placed in prone position vital signs monitored. The patient was brought into the procedure room and placed in prone position. Skin was prepped with Chloraprep and draped in a sterile manner. Lidocaine 1% was used to numb the skin up at the target points that were chosen as follows: at the L5-S1 level which corresponds to the dorsal ramus of L5 the target points were at the superior medial aspect of the sacral ala on each side of the spine on the AP view of fluoroscopy, and for the L3 and L4 medial branches the target points were the connection between the transverse process and the superior articular process of L4 and L5 respectively on the oblique views of fluoroscopy. I used 22-gauge 3-1/2 inch [place]ke spinal needles for this procedure and after contacting bone at the target points mentioned above I injected 1 mL of a mixture of Kenalog 40 mg +5 MLS of Ropivacaine 0.5% PF . Patient tolerated procedure well. At the end of the procedure the needles removed and a bandage applied after the skin was cleaned the cleaning solution. patient was then taken to the recovery room in stable condition and monitored in the recovery room for 20-30 minutes and discharged home in stable condition after discharge criteria met . A copy of the needle placement picture was saved to the C-arm machine.
== END 2021-06-14 12:27 | disposition home or self-care (01) ==
LOC: ORPAIN 10:42
PROVIDERS: ATTEND Anesthesiology
DX: G89.29 Other chronic pain (principal); M54.50 Low back pain, unspecified; Z88.6 Allergy status to analgesic agent
CPT/HCPCS: 81025; 64493; 64494; J2250; J3301; J2795; 99152

== ENCOUNTER → 2021-12-14 | Outpatient (CLI) | payer OTHER ==
--- NOTE | 2021-12-14 11:19 | P.PAINPG ---
PQRS Measure Charge Sheet Comment: A 36 yr old female with a history of severe and chronic neck pain secondary to cervical degenerative disc diseases lumbar spondylosis with facet arthropathy presents today for evaluation. She states her neck pain as 6 out of 10 in intensity, constant, aching, throbbing in the left lower aspect of her cervical spine with radiation of pain to the left upper extremity. Pain is provoked by hyperextension. Pain is alleviated with medications ([place], mobility), CBD soaks, physical therapy in August 2021 which was unhelpful, massage by her which is too painful, laying on her left side and rest. Patient is currently on [place], Mobic Patient denies any side effects of the medication(s), denies excessive drowsiness or sleepiness, denies suicidal ideation and reports that the current pain medication is helping to control the pain and improve activities of daily living. Patient denies any motor or sensory deficits. Patient denies any fever or night sweats, denies any change in the bowel movements or urination. Physical Examination: -Constitutional: Cooperative. Not in acute distress . -HEENT: Neck is supple. No lymphadenopathy. No thyromegaly. Normal thyroid size. Eyes: No ptosis , no icterus, no photophobia. ENT: No auditory deficits. Normal oropharynx. No Thrush. - Respiratory: Chest clear to auscultations bilaterally. No wheezing. No rhonchi. - Cardiovascular: Regular rate and rhythm. S1 / S2 , no S3 , no S4. - Gastrointestinal: Abdomen soft no tenderness. Bowel sounds positive in all four quadrants. No organomegaly. - Genitourinary: Deferred. - Neurologic: Cranial nerve II to XII intact. No focal neurological defici ts. - Psychatric: Alert & oriented x 3. Matching mood & appropriate affect. Judgment and insight intact. - Lymphatic: No Lymphadenopathy. - Musculoskeletal: Cervical spine: Muscle bulk/ tone/ strength in the bilateral upper extremities normal Vertebral body tenderness to palpation over the C5, C6 Distraction test positive Facet loading test positive Thoracic spine Muscle bulk / tone/ strength in the bilateral paraspinal muscles normal Vertebral body tender to palpation over Facet loading test positive Lumbar spine: Motor bulk/ tone/ strength lower extremities , thigh and legs : 5/5 Deep tendon reflexes : Normal Knee Jerk. Normal Ankle Jerk . Vertebral body tenderness to palpation over Lumbar Facet Loading Test positive Straight Leg Raise: positive at 30 degrees right side/ left side Gaenslen's Test positive Sacral spine : Severe tenderness over the Sacroiliac joint: right side / left side Range of motion: Flexion of the lumbar spine <60 degrees Range of motion: Extension of the lumbar spine <20 degrees Gaenslen's Test positive Oli's Test positive Tatiana test: positive right side / left side Thigh Thrust Test Sacral Thrust Test Assessment and plan: Chronic neck pain secondary to degenerative disc disease , spondylosis with facet arthropathy without myelopathy Mentation of JAMES C5 to C6. May need a series of injections, up to 3 within a six-month abdomen, for optimal pain relief. Risks, benefits of procedure discussed and pt verbalized understanding. Denies anticoagulant use or medical history of diabetes. All patient questions answered MAPS reviewed and it was appropriate. I have spent 31 minutes on patient care today. Dr Mar was available by phone for the evaluation of this patient. The time was used to review the medica l records including relevant urine studies and Prescription history (MAPs), review of the available imaging, evaluation and examination of the patient, coordination of care with the medical staff and if applicable referring physicians, as well as creation of the medical record PQRS Narrative: Smoking Status Current every day smoker Pain Intensity [Neck] 7 Hx Alcohol Use (MH) Yes: Rare Home Medications: Ambulatory Orders HYDROcodone/APAP 7.5-325MG [[place] 7.5] 1 tab PO TID 11/22/17 Escitalopram Oxalate [Lexapro] 20 mg PO DAILY 01/11/21 Meloxicam [Mobic] 15 mg PO DAILY 06/09/21 Controlled Substance Measures - Controlled Substance Measures Is patient prescribed a controlled substance at discharge?: No
[2021-12-14 11:23] VITALS: BP 120/84; PULSE 87; RESP 16; TEMP 98.3
== END | disposition home or self-care (01) ==
LOC: PNWHC3 10:45
PROVIDERS: ATTEND Specialist
DX: M47.892 Other spondylosis, cervical region (principal)
CPT/HCPCS: 99211

== ENCOUNTER → 2022-03-22 | Outpatient (CLI) | payer OTHER ==
[2022-03-22 13:58] VITALS: BP 120/74; PULSE 68; RESP 18
--- NOTE | 2022-03-22 15:12 | P.PAINPG ---
PQRS Measure Charge Sheet Comment: A 37 yr old female with a history of severe and chronic neck pain secondary to cervical degenerative disc diseases and spondylosis with facet arthropathy without myelopathy presents today for evaluation s/p L paramedian C6-C7. Pt states she experienced 30% pain relief x 4 wks s/p procedure. Pain level is c urrently at /10 in intensity, constant, localized in lower L cervical spine, throbbing in character w shooting towards L shoulder. Pain is provoked by lifting. Pain is alleviated with medications, +cannabis, repositioning and rest. Interventional pain procedures completed include RITA C6-C7 x1. Patient is currently on [place], Celebrex from Dr Huffman Patient denies any side effects of the medication(s), denies excessive drowsiness or sleepiness, denies suicidal ideation and reports that the current pain medication is helping to control the pain and improve activities of daily living. Patient denies any motor or sensory deficits. Patient denies any fever or night sweats, denies any change in the bowel movements or urination. Physical Examination: -Constitutional: Cooperative. Not in acute distress . - Neurologic: Cranial nerve II to XII intact. No focal neurological deficits. - Psychatric: Alert & oriented x 3. Matching mood & appropriate affect. Judgment and insight intact. - Musculoskeletal: Cervical spine: Muscle bulk/ tone/ strength in the bilateral upper extremities normal Vertebral body tenderness to palpation [place] test positive Distraction test positive Facet loading test positive on L w L C4-C5, C5-C6 jump reflex upon palpation Thoracic spine Muscle bulk / tone/ strength in the bilateral paraspinal muscles normal Vertebral body tender to palpation over Facet loading test positive Lumbar spine: Motor bulk/ tone/ strength lower extremities , thigh and legs : 5/5 Deep tendon reflexes : Normal Knee Jerk. Normal Ankle Jerk . Vertebral body tenderness to palpation over Lumbar Facet Loading Test positive Straight Leg Raise: positive at 30 degrees right side/ left side Gaenslen's Test positive Sacral spine : Severe tenderness over the Sacroiliac joint: right side / left side Range of motion: Flexion of the lumbar spine <60 degrees Range of motion: Extension of the lumbar spine <20 degrees Gaenslen's Test positive Oli's Test positive Tatiana test: positive right side / left side Thigh Thrust Test Sacral Thrust Test Assessment and plan: Chronic neck pain secondary to cervical degenerative disc disease , spondylosis with facet arthropathy without myelopathy Recommendation of L MBB C4-C5, C5-C6 #1. Patient may need a series of injections, up until RFA, for optimal pain relief. Risks, benefits of procedure discussed and pt verbalized understanding. Denies anticoagulant use or medical history of diabetes. All patient questions answered MAPS reviewed and it was appropriate. I have spent less than 30 minutes on patient care today. Dr Mar was available by phone for the evaluation of this patient. The time was used to review the medical records including relevant urine studies and Prescription history (MAPs), review of the available imaging, evaluation and examination of the patient, coordination of care with the medical staff and if applicable referring physicians, as well as creation of the medical record PQRS Narrative: Smoking Status Current every day smoker Hx Alcohol Use (MH) Yes: Rare Home Medications: Ambulatory Orders HYDROcodone/APAP 7.5-325MG [[place] 7.5] 1 tab PO TID PRN 11/22/17 Escitalopram Oxalate [Lexapro] 20 mg PO HS 01/11/21 Celecoxib [CeleBREX] 200 mg PO HS 02/22/22 traZODone HCL [Desyrel] 50 mg PO HS 02/22/22 Controlled Substance Measures - Controlled Substance Measures Is patient prescribed a controlled substance at discharge?: No
== END ==
LOC: PNWHC3 13:11
PROVIDERS: ATTEND Specialist
DX: M51.36 Other intervertebral disc degeneration, lumbar region (principal); M47.816 Spondylosis without myelopathy or radiculopathy, lumbar region; G89.29 Other chronic pain; Z79.891 Long term (current) use of opiate analgesic; F17.200 Nicotine dependence, unspecified, uncomplicated; Z88.6 Allergy status to analgesic agent
CPT/HCPCS: 99211

== ENCOUNTER 2022-04-20 12:47 | Day surgery (SDC) | payer OTHER ==
[2022-04-20 13:16] VITALS: RESP 16; TEMP 98.4
[2022-04-20] MEDS ORDERED: DEXAMETHASONE SOD PHOSPHATE 10 MG/ML 1 ML VIAL ONE (13:45)
[2022-04-20] MEDS ORDERED: MIDAZOLAM 2 MG/2 ML VIAL ONE (13:45)
[2022-04-20] MEDS ORDERED: ROPIVACAINE 5 MG/ML 20 ML AMPULE ONE (13:45)
--- NOTE | 2022-04-20 14:05 | P.PCN ---
Date of Procedure: 04/20/22 Description of Procedure: PREOPERATIVE DIAGNOSIS: Cervical Facet syndrome /cervical spondylosis without myelopathy. POSTOPERATIVE DIAGNOSIS: Cervical Facet syndrome /cervical spondylosis without myelopathy. PROCEDURES: Left-sided cervical C4-C5, and C5-C6 medial branch injections, with fluoroscopic guidance, SURGEON: Hawk Hazel ANESTHESIA: 4ml of Local lidocaine 1% , and IV sedation with : versed 2mg Sedation supervision start time: 1348 Sedation supervision and time: 1401 EBL: None Specimen removed: None Fluoroscopic image: Saved to electronic medical records. PROCEDURE INDICATION: Patient had chronic neck pain. He tried conservative therapy with minimal benefits. Came here for intervention procedure. PROCEDURE DESCRIPTION: The patient was seen and identified in the preoperative area. Risks, benefits, complications, and alternatives were discussed with the patient. The patient agreed to pursue with the procedure and signed the consent. IV was started and vital signs were stable. Patient was taken to the procedure room and time out was completed. The patient was placed in the prone position on the procedure table and cervical area was prepped with ChloraPrep 1 and draped in the usual sterile fashion. Critical pause was taken. Vital signs were closely monitored during the procedure. Using AP fluoroscopy, left side the waists of lateral margins of C4, C5, and C6 were identified and localized with 1% lidocaine. We used 22-gauge 3-1/2 inch spinal needles 3 used for the procedure. Using the posterior approach, spinal cannulas were guided by anterior posterior fluoroscopy to the waists of the lateral masses of C4, C5, and C6. Needle tip position was confirmed at the centroid of the trapezoids of C4, C5, and C6 with lateral fluoroscopy. After negative aspiration of CSF and blood and with no paresthesias 0.5 mL of block solution injected at each site. Block solution contained 10 MG of dexamethasone and 1 mL of preservative-free ropivacaine 0.5%. [place] were removed intact. [place] removed intact. Skin was cleansed and bandages were applied. COMPLICATIONS: None. DISPOSITION / PLANS: The patient was placed in a supine position and transferred to the recovery area in a stable condition for observation and was discharged from the recovery room after meeting discharge criteria. Home discharge instructions given to the patient by the staff. The patient was reexamined prior to discharge. Scheduled to follow up with the pain clinic in 2- 4 weeks duration.
[2022-04-20] MEDS ORDERED: IV FLUID CONTINUATION 1,000 ML IV ONE (14:11)
[2022-04-20 14:32] VITALS: BP 112/79; PULSE 77
--- NOTE | 2022-04-20 14:32 | FL ---
Fluoroscopy HISTORY: Pain 9 seconds fluoroscopy time supplied to the referring clinician. 4 intraoperative C-arm images docume nt the procedure. See dictated report from anesthesia.
== END 2022-04-20 14:42 | disposition home or self-care (01) ==
LOC: ORPAIN 12:47
DX: M47.812 Spondylosis without myelopathy or radiculopathy, cervical region (principal); M50.30 Other cervical disc degeneration, unspecified cervical region; K21.9 Gastro-esophageal reflux disease without esophagitis; G56.00 Carpal tunnel syndrome, unspecified upper limb; Z79.899 Other long term (current) drug therapy; Z98.891 History of uterine scar from previous surgery; Z98.890 Other specified postprocedural states
CPT/HCPCS: 81025; 64490; 64491; 99152; J2250; J1100; J2795

== ENCOUNTER → 2022-04-26 | Outpatient (CLI) | payer OTHER ==
--- NOTE | 2022-04-26 15:02 | US ---
EXAMINATION TYPE: US abdomen complete DATE OF EXAM: 04/26/2022 COMPARISON: NONE CLINICAL HISTORY: R10.84 generalized abdominal pain. N/V/D after eating x couple months TECHNIQUE: Multiple sonographic images of the abdomen are obtained. FINDINGS: EXAM MEASUREMENTS: Liver Length: 17.8 cm. Normal less than 15.5 cm. Gallbladder Wall: 0.2 cm CBD: 0.5 cm Spleen: 10.3 cm Right Kidney: 11.5 x 3.6 x 4.6 cm Left Kidney: 11.6 x 6.3 x 5.2 cm Pancreas: wnl Liver: wnl. Echotexture appears normal. No discrete masses are evident. Gallbladder: wnl Evidence for sonographic Rodarte's sign: no CBD: wnl Spleen: visualized portions wnl, limited by overlying midline Right Kidney: wnl Left Kidney: wnl Upper IVC: wnl Abd Aorta: wnl IMPRESSION: 1. Hepatomegaly.
== END | disposition home or self-care (01) ==
LOC: RADUSWWP 08:07
PROVIDERS: ATTEND Internal Medicine
DX: R16.0 Hepatomegaly, not elsewhere classified (principal)
CPT/HCPCS: 76700

== ENCOUNTER → 2022-05-18 | Outpatient (CLI) | payer OTHER ==
[2022-05-18 14:43] VITALS: BP 120/80; PULSE 85; RESP 18; TEMP 98.1
--- NOTE | 2022-05-18 14:49 | P.PAINPG ---
PQRS Measure Charge Sheet Comment: A 37 yr old female with a history of severe and chronic low back pain secondary to lumbar DDD and spondylosis with facet arthropathy without myelopathy presents today for evaluation s/p L MBB C4-C5, C5-C6. Pt states she experienced 90% pain relief x 4 hrs s/p procedure. Pain level is currently at /10 in intensity, constant, localized in the L cervical spine, stabbing in character w shooting towards the L shoulder. Pain is provoked by rotation. Pain is alleviated with hot baths w epsom salt, massage bed, meds ([place]), topicals, +THC, repositioning and rest. Interventional pain procedures completed include L MBB C4-C6 x1, JAMES C6-C7, L MBB L3-L5 x2 Patient is currently on [place] Patient denies any side effects of the medication(s), denies excessive drowsiness or sleepiness, denies suicidal ideation and reports that the current pain medication is helping to control the pain and improve activities of daily living. Patient denies any motor or sensory deficits. Patient denies any fever or night sweats, denies any change in the bowel movements or urination. Physical Examination: -Constitutional: Cooperative. Not in acute distress . - Neurologic: Cranial nerve II to XII intact. No focal neurological deficits. - Psychatric: Alert & oriented x 3. Matching mood & appropriate affect. Judgment and insight intact. - Musculoskeletal: Cervical spine: Muscle bulk/ tone/ strength in the bilateral upper extremities normal Vertebral body tenderness to palpation over Spurling test positive Distraction test positive Facet loading test positive jump reflex over L C4-C5, C5-C6 facets Thoracic spine Muscle bulk / tone/ strength in the bilateral paraspinal muscles normal Vertebral body tender to palpation over Facet loading test positive Lumbar spine: Motor bulk/ tone/ strength lower extremities , thigh and legs : 5/5 Deep tendon reflexes : Normal Knee Jerk. Normal Ankle Jerk . Vertebral body tenderness to palpation over Lumbar Facet Loading Test positive Straight Leg Raise: positive at 30 degrees right side/ left side Gaenslen's Test positive Sacral spine : Severe tenderness over the Sacroiliac joint: right side / left side Range of motion: Flexion of the lumbar spine <60 degrees Range of motion: Extension of the lumbar spine <20 degrees Gaenslen's Test positive Tatiana test: positive right side / left side Thigh Thrust Test Sacral Thrust Test Assessment and plan: Chronic low back pain secondary to lumbar degenerative disc disease, spondylosis with facet arthropathy without myelopathy Recommendation of L MBB C4-C5, C5-C6 #2. May need a series of injections, up until RFA, for optimal pain relief. Risks, benefits of procedure discussed and pt verbalized understanding. Denies anticoagulant use or medical history of diabetes. All patient questions answered I have spent less than 30 minutes on patient care today. Dr Mar was available by phone for the evaluation of this patient. The time was used to review the medical records including relevant urine studies and Prescription history (MAPs), review of the available imaging, evaluation and examination of the patient, coordination of care with the medical staff and if applicable referring physicians, as well as creation of the medical record PQRS Narrative: Smoking Status Current every day smoker Hx Alcohol Use (MH) Yes: Rare Home Medications: Ambulatory Orders HYDROcodone/APAP 7.5-325MG [[place] 7.5] 1 tab PO TID PRN 11/22/17 Escitalopram Oxalate [Lexapro] 20 mg PO HS 01/11/21 Celecoxib [CeleBREX] 200 mg PO HS 02/22/22 traZODone HCL [Desyrel] 50 mg PO HS 02/22/22 Pantoprazole [Protonix] 40 mg PO DAILY 04/19/22 Controlled Substance Measures - Controlled Substance Measures Is patient prescribed a controlled substance at discharge?: No
== END | disposition home or self-care (01) ==
LOC: PNWHC3 14:06
PROVIDERS: ATTEND Specialist
DX: M47.896 Other spondylosis, lumbar region (principal); M51.36 Other intervertebral disc degeneration, lumbar region
CPT/HCPCS: 99211

== ENCOUNTER → 2023-08-13 | Outpatient (CLI) | payer OTHER ==
--- NOTE | 2023-08-14 08:10 | XR ---
EXAMINATION TYPE: XR chest 2V DATE OF EXAM: 08/13/2023 1:54 PM CLINICAL INDICATION:Female, 38 years old with history of R61 hyper hydrosis night sweats; PHH COMPARISON: Chest radiographs from 07/20/2019 TECHNIQUE: XR chest 2V Frontal and lateral views of the chest. FINDINGS: Lungs/Pleura: There is no evidence of pleural effusion, focal consolidation, or pneumothorax. Pulmonary vascularity: Unremarkable. Heart/mediastinum: Cardiomediastinal silhouette is unremarkable. Musculoskeletal: No acute osseous pathology. Other findings: None IMPRESSION: No acute cardiopulmonary disease/process.
== END | disposition home or self-care (01) ==
LOC: RADXRMAIN 13:37
PROVIDERS: ATTEND Internal Medicine
DX: R61 Generalized hyperhidrosis (principal)
CPT/HCPCS: 71046

== ENCOUNTER → 2024-06-20 | Outpatient (CLI) | payer OTHER ==
--- NOTE | 2024-06-20 12:13 | MM ---
Reason for Exam: Screening (asymptomatic). Baseline mammogram. Patient History: Menarche at age 7. First Full-Term at age 21. Last menstrual period: 06/01/2024 Risk Values: Yara 5 year model risk: 0.5%. NCI Lifetime model risk: 9.9%. Prior Study Comparison: Patient's first Mammogram. Tissue Density: There are scattered areas of fibroglandular density. Findings: Analyzed By CAD. There is no suspicious group of microcalcifications or new suspicious mass in either breast. Overall Assessment: Negative, BI-RAD 1 Management: Screening Mammogram of both breasts in 1 year. . Patient should continue monthly self-breast exams. A clinical breast exam by your physician is recommended on an annual basis. This exam should not preclude additional follow-up of suspicious palpable abnormalities. Note on Yara scores and lifetime risk: 1. A Yara score greater than 3% is considered moderate risk. If this is the case, consider specialist referral to assess eligibility for a risk reducing agent. 2. If overall lifetime risk for the development of breast cancer is 20% or higher, the patient may qualify for future screening with alternating mammogram and breast MRI. [facility], , 06/20/2024 12:08 PM. Electronically signed and approved by: Osorio Slona M.D. Radiolog[facility]
== END | disposition home or self-care (01) ==
LOC: RADMAMWWP 07:10
PROVIDERS: ATTEND Internal Medicine
DX: Z12.31 Encounter for screening mammogram for malignant neoplasm of breast (principal); R92.323 Mammographic fibroglandular density, bilateral breasts
CPT/HCPCS: 77063; 77067